=== PATIENT | male | born 1965 | race Hispanic/Latino ===

== ENCOUNTER 2017-02-04 06:31 | Emergency (ER) | payer BC ==
[2017-02-04 06:46] VITALS: BMI 35.4
[2017-02-04 06:49] VITALS: TEMP 98.2
--- NOTE | 2017-02-04 07:43 | ED PDOC ---
Arrival/HPI <KarlamayraKeegan - Last Filed: 02/04/17 08:09> <Lala Sotelo - Last Filed: 02/04/17 12:40> - General Chief Complaint: Weakness/Neurological Deficit Time Seen by Provider: 02/04/17 07:09 - History of Present Illness Narrative History of Present Illness (Text): 02/04/17 07:33 51 y/o M w/ PMHx of HTN presents to the ED w/ dizziness and chest pressure. Pt states he woke up at 4am as per usually. Pt went to get his mail and coffee when he became lightheaded, dizzy, and unsteady. Pt admits to some chest discomfort and diaphoresis during this episode. symptoms resolved w/in a few minutes, but reoccurred. Pt denies changes in vision, DUBON, palpitations, F/C, N/V , numbness or weakness. Pt expressed concer w/ wound on R medial thigh. Pt states he scraped his leg w/ an anvil on Monday (01/31/17). His jeans did not rip but he did have some superficial scrapes. Pt takes coumadin for previous TIA /stoke. Pt admits to significant swelling and bruising of R medial thigh which has improved. Pt denies any decreased ROM or numbness/tingling. (Lala Sotelo) Past Medical History - Provider Review Nursing Documentation Reviewed: Yes - Infectious Disease Hx of Infectious Diseases: None - Tetanus Immunization Tetanus Immunization: Unknown - Cardiac Hx Hypertension: Yes - Pulmonary Hx Respiratory Tract Infection: Yes - Neurological Hx Neurological Disorder: No - HEENT Hx HEENT Disorder: Yes (detatched retina) - Renal Hx Renal Disorder: No - Endocrine/Metabolic Hx Endocrine Disorders: No - Hematological/Oncological Hx Blood Disorders: No - Integumentary Hx Dermatological Disorder: No - Musculoskeletal/Rheumatological Hx Musculoskeletal Disorders: No Hx Falls: No - Gastrointestinal Hx Gastrointestinal Disorders: No - Genitourinary/Gynecological Hx Genitourinary Disorders: No - Psychiatric Hx Depression: Yes Hx Substance Use: No - Past Surgical History Past Surgical History: No Previous - Surgical History Hx Eye Surgery: Yes - Anesthesia Hx Anesthesia: Yes Hx Anesthesia Reactions: No Hx Malignant Hyperthermia: No - Suicidal Assessment Feels Threatened In Home Enviroment: No <Lala Sotelo - Last Filed: 02/04/17 12:40> Family/Social History - Physician Review Nursing Documentation Reviewed: Yes Family/Social History: No Known Family HX Smoking Status: Heavy Smoker > 10 Cigarettes Daily Hx Alcohol Use: Yes Frequency of alcohol use: Socially Hx Substance Use: No Hx Substance Use Treatment: No <AshleighLala - Last Filed: 02/04/17 12:40> Allergies/Home Meds <Keegan Díaz - Last Filed: 02/04/17 08:09> <Sydnee Soteloanda - Last Filed: 02/04/17 12:40> Allergies/Adverse Reactions: Allergies No Known Allergies Allergy (Verified 10/31/15 15:42) Home Medications: Home Meds Medication Instructions Recorded Confirmed Lisinopril [Lisinopril] 40 mg PO BID 10/30/15 10/31/15 amLODIPine [Norvasc] 10 mg PO DAILY 10/30/15 10/31/15 hydroCHLOROthiazide [Hydrodiuril] 25 mg PO DAILY 10/30/15 10/31/15 Review of Systems - Physician Review All systems were reviewed & negative as marked: Yes - Review of Systems Constitutional: absent: Fevers Eyes: absent: Vision Changes <Lala Sotelo - Last Filed: 02/04/17 12:40> Physical Exam Vital Signs Reviewed: Yes Temperature: Afebrile Blood Pressure: Hypertensive Pulse: Regular Respiratory Rate: Normal Appearance: Positive for: Well-Appearing, Comfortable Pain Distress: None Mental Status: Positive for: Alert and Oriented X 3 - Systems Exam Head: Present: Atraumatic, Normocephalic Extroacular Muscles: Present: EOMI Conjunctiva: Present: Normal Mouth: Present: Moist Mucous Membranes Neck: Present: Normal Range of Motion Respiratory/Chest: Present: Clear to Auscultation, Good Air Exchange. No: Respiratory Distress, Accessory Muscle Use Cardiovascular: Present: Regular Rate and Rhythm, Normal S1, S2. No: Murmurs Abdomen: Present: Tenderness, Normal Bowel Sounds. No: Distention, Peritoneal Signs Upper Extremity: Present: Normal Inspection Lower Extremity: Present: Other (ecchymosis in various stages of healing on R medial thigh. no induration, fluctuance. superficial scrapes.). No: Edema, CALF TENDERNESS, Temperature Abnormalties Neurological: Present: GCS=15, Speech Normal Skin: Present: Warm, Dry Psychiatric: Present: Alert, Oriented x 3, Normal Insight, Normal Concentration <Lala Sotelo - Last Filed: 02/04/17 12:40> Vital Signs Temp Pulse Resp BP Pulse Ox 02/04/17 11:51 65 16 173/100 H 98 02/04/17 10:29 69 16 174/94 H 97 02/04/17 08:55 68 16 165/97 H 97 02/04/17 06:48 98.2 F 71 18 188/125 H 97 Medical Decision Making <Keegan Díaz - Last Filed: 02/04/17 08:09> - Lab Interpretations I have reviewed the lab results: Yes (elevated LDH, CPK; trop WNL) - RAD Interpretation Channel Rougher: ED Physician (CXR: No active disease, Borderline cardiomegaly) - EKG Interpretation Interpreted by ED Physician: Yes (NSR, rate 71, no ST elevations) Type: 12 lead EKG <Lala Sotelo - Last Filed: 02/04/17 12:40> ED Course and Treatment: In agreement with resident note, which includes further HPI details. Patient was seen and evaluated with resident, came up with plan and treatment together. (Keegan Díaz) 02/04/17 07:46 51 y/o M w/ chest discomfort - ACS r/o - EKG, CXR - Labs - ASA - RLE CT - reassess and dispo 02/04/17 08:54 Pt BP improved w/ Nitro. Pt resting comfortably. no current complaints. Case discussed w/ Dr. Epps, covering for Dr. Alexander. Pt accepted to her service for ACS r/o. Pt agreeable to admission for observation. (Lala Sotelo) - Lab Interpretations Lab Results: 02/04/17 07:48 02/04/17 07:48 Lab Results 02/04/17 07:48: Sodium 142, Potassium 3.4 L, Chloride 104, Carbon Dioxide 28, Anion Gap 13, BUN 21, Creatinine 1.2, Est GFR ( Amer) > 60, Est GFR (Non- Af Amer) > 60, Random Glucose 106, Calcium 9.4, Magnesium 1.9, Total Bilirubin 0.9, AST 46, ALT 38, Alkaline Phosphatase 73, Lactate Dehydrogenase 727 H, Total Creatine Kinase 519 H, CK-MB (CK-2) 4.2 H, CK-MB (CK-2) % Cancelled, Troponin I < 0.01 D, Total Protein 7.6, Albumin 4.4, Globulin 3.2, Albumin/ Globulin Ratio 1.4 02/04/17 07:48: PT 10.8, INR 1.00, APTT 26.0 02/04/17 07:48: WBC 5.5, RBC 4.41, Hgb 13.8 L, Hct 39.9 L, MCV 90.5, MCH 31.3, MCHC 34.6, RDW 12.6, Plt Count 200, MPV 9.2, Gran % 70.8 H, Lymph % (Auto) 18.5 L, Routt % (Auto) 8.5 H, Eos % (Auto) 1.8, Baso % (Auto) 0.4, Gran # 3.91, Lymph # 1.0 L, Routt # 0.5, Eos # 0.1, Baso # 0.02 - RAD Interpretation Narrative RAD Interpretations (Text): 02/04/17 12:19 CT RLE: small hematoma medial thigh. R knee pedro's cyts (Lala Sotelo) Radiology Orders: 02/04/17 07:35 CHEST PORTABLE [RAD] Stat 02/04/17 07:57 EXT LOWER WITH CONTRAST RIGHT [CT] Stat - Medication Orders Current Medication Orders: Discontinued Medications Acetaminophen (Tylenol 325mg Tab) 650 mg PO STAT STA Stop: 02/04/17 08:04 Last Admin: 02/04/17 08:12 Dose: 650 mg Acetaminophen (Tylenol 325mg Tab) 650 mg PO Q6H PRN PRN Reason: Fever >100.4 F Aspirin (Aspirin) 325 mg PO STAT STA Stop: 02/04/17 07:35 Last Admin: 02/04/17 07:57 Dose: 325 mg Aspirin (Aspirin Chewable) 81 mg PO DAILY [facility] Last Admin: 02/04/17 10:13 Dose: Iohexol (Omnipaque 350 100 Ml) Confirm Administered Dose 350 mg .ROUTE .STK-MED ONE Stop: 02/04/17 09:00 Metoprolol Succinate (Toprol Xl) 25 mg PO BRK [facility] Last Admin: 02/04/17 10:32 Dose: 25 mg Nitroglycerin (Nitrostat Sl Tab) 0.4 mg SL STAT STA Stop: 02/04/17 07:49 Last Admin: 02/04/17 07:57 Dose: 0.4 mg Ondansetron HCl (Zofran Inj) 4 mg IVP Q6H PRN PRN Reason: Nausea/Vomiting Pantoprazole Sodium (Protonix Ec Tab) 40 mg PO 0630 [facility] Potassium Chloride (K-Dur 20 Meq Er Tab) 20 meq PO STAT STA Stop: 02/04/17 08:10 Last Admin: 02/04/17 08:49 Dose: 20 meq - Scribe Statement The provider has reviewed the documentation as recorded by the Scribe <Keegan Díaz - Last Filed: 02/04/17 08:09> <Lala Sotelo - Last Filed: 02/04/17 12:40> - Scribe Statement Ashley Juarez Provider Scribe Attestation: All medical record entries made by the Scribe were at my direction and personally dictated by me. I have reviewed the chart and agree that the record accurately reflects my personal performance of the history, physical exam, medical decision making, and the department course for this patient. I have also personally directed, reviewed, and agree with the discharge instructions and disposition. (Keegan Díaz) Disposition/Present on Arrival <Keegan Díaz - Last Filed: 02/04/17 08:09> - Present on Arrival Any Indicators Present on Arrival: No History of DVT/PE: No History of Uncontrolled Diabetes: No Urinary Catheter: No History of Decub. Ulcer: No History Surgical Site Infection Following: None - Disposition Have Diagnosis and Disposition been Completed?: Yes Disposition Time: 08:54 Patient Plan: Observation <Lala Sotelo - Last Filed: 02/04/17 12:40> - Disposition Diagnosis: Chest pain Disposition: AGAINST MEDICAL ADVICE Condition: STABLE Referrals: PCP,NO [Primary Care Provider] - Follow up with primary
[2017-02-04 07:49] LABS: ADD MANUAL DIFF? NO
[2017-02-04 07:52] LABS: BASO # 0.02 K/mm3 (0.0-2.0); BASO % 0.4 % (0.0-3.0); EOS # 0.1 (0.0-0.7); EOS % 1.8 % (1.5-5.0); GRAN # 3.91 (1.4-6.5); GRAN % 70.8 % (50.0-68.0); HEMATOCRIT 39.9 % (42.0-52.0); LYMPH % 18.5 % (22.0-35.0); MEAN CELL VOLUME 90.5 fL (80.0-105.0); MEAN CORPUSCULAR HEMOGLOBIN 31.3 pg (25.0-35.0); MEAN CORPUSCULAR HGB CONC 34.6 g/dl (31.0-37.0); MEAN PLATELET VOLUME 9.2 fl (7.0-11.0); MONO # 0.5 (0.1-0.6); MONO % 8.5 % (1.0-6.0); PLATELET COUNT 200 10^3/uL (120.0-450.0); RED CELL DISTRIBUTION WIDTH 12.6 % (11.5-14.5); WHITE BLOOD COUNT 5.5 10^3/ul (4.5-11.0)
[2017-02-04 08:05] LABS: ALB/GLOB RATIO 1.4 (1.1-1.8); ALKALINE PHOSPHATASE 73 U/L (38-133); ALT/SGPT 38 U/L (7-56); AST/SGOT 46 U/L (15-59); BILIRUBIN,TOTAL 0.9 mg/dL (0.2-1.3); BLOOD UREA NITROGEN 21 mg/dL (7-21); CALCIUM 9.4 mg/dL (8.4-10.5); CARBON DIOXIDE 28 mmol/L (21-33); CHLORIDE 104 mmol/L (98-107); GFR AFRICAN-AMERICAN > 60; GLUCOSE,RANDOM 106 mg/dL (70-110); MAGNESIUM 1.9 mg/dL (1.7-2.2); POTASSIUM 3.4 mmol/L (3.6-5.0); SODIUM 142 mmol/L (132-148); TOTAL PROTEIN 7.6 g/dL (5.8-8.3)
[2017-02-04] MEDS ORDERED: Potassium Chloride 20 mEq ER Tab PO STA (08:09)
[2017-02-04 08:19] LABS: TROPONIN I < 0.01 ng/mL
[2017-02-04 08:57] VITALS: RESP 16
[2017-02-04] MEDS ORDERED: Iohexol 350 MG/100 ML VIAL ONE (08:59)
--- NOTE | 2017-02-04 09:23 | RAD ---
HISTORY: chest pressure COMPARISON: Chest x-ray performed 10/30/15 TECHNIQUE: Chest, one view. FINDINGS: Examination limited by habitus. LUNGS: No focal consolidation. Please note that chest x-ray has limited sensitivity for the detection of pulmonary masses. PLEURA: No significant pleural effusion identified. No definite pneumothorax . CARDIOVASCULAR: Heart size appears top normal. Ectatic aorta. OSSEOUS STRUCTURES: Degenerative changes. Acromioclavicular arthropathy. VISUALIZED UPPER ABDOMEN: Mild elevation of the right hemidiaphragm. OTHER FINDINGS: None. IMPRESSION: No focal consolidation, significant pleural effusion, or definite pneumothorax identified.
[2017-02-04] MEDS ORDERED: Metoprolol Succinate 25 mg XL Tab PO SCH (09:30)
[2017-02-04 11:52] VITALS: BP 173/100; PULSE 65; O2SAT 98
--- NOTE | 2017-02-04 12:03 | CP.PCM.PN ---
Subjective - Date & Time of Evaluation Date of Evaluation: 02/04/17 Time of Evaluation: 11:58 - Subjective Subjective: pt was admitted for cp and rt thigh hematoma on cumadine. wants to sign AMA. pt states he has to take care of his mother at home. Objective - Vital Signs/Intake and Output Vital Signs (last 24 hours): Temp Pulse Resp BP Pulse Ox 98.2 F 65 16 173/100 H 98 02/04/17 06:48 02/04/17 11:51 02/04/17 11:51 02/04/17 11:51 02/04/17 11:51 - Medications Medications: Current Medications Acetaminophen (Tylenol 325mg Tab) 650 mg PO Q6H PRN PRN Reason: Fever >100.4 F Aspirin (Aspirin Chewable) 81 mg PO DAILY [facility] Last Admin: 02/04/17 10:13 Dose: Not Given Metoprolol Succinate (Toprol Xl) 25 mg PO BRK [facility] Last Admin: 02/04/17 10:32 Dose: 25 mg Ondansetron HCl (Zofran Inj) 4 mg IVP Q6H PRN PRN Reason: Nausea/Vomiting Pantoprazole Sodium (Protonix Ec Tab) 40 mg PO 0630 [facility] - Labs Labs: PT 10.8 Seconds (9.9-11.8) 02/04/17 07:48 INR 1.00 (0.93-1.08) 02/04/17 07:48 APTT 26.0 Seconds (23.7-30.8) 02/04/17 07:48 - Constitutional Appears: No Acute Distress - Head Exam Head Exam: NORMOCEPHALIC - Eye Exam Eye Exam: Normal appearance Pupil Exam: PERRL - ENT Exam ENT Exam: Mucous Membranes Moist - Neck Exam Neck Exam: Full ROM - Respiratory Exam Respiratory Exam: Clear to Ausculation Bilateral, NORMAL BREATHING PATTERN - Cardiovascular Exam Cardiovascular Exam: RRR, +S1, +S2 - Rectal Exam Rectal Exam: Deferred - Extremities Exam Extremities Exam: Full ROM - Neurological Exam Neurological Exam: Alert, Awake, CN II-XII Intact, Oriented x3 - Psychiatric Exam Psychiatric exam: Normal Affect - Skin Skin Exam: Dry Additional comments: pt has hematoma on rt thigh. Assessment and Plan - Assessment and Plan (Free Text) Assessment: AMA. CP . RT THIGH HEMATOMA ON CUMADINE PT PTT NL . Plan: RISK OF RECURRENT BLEEDING AND CP EXPLAINDto pt. pmd dr rain informed.
--- NOTE | 2017-02-04 12:22 | CT ---
Indication: Hematoma Right lower extremity CT with contrast Technique: Axial CT images of the right femur without IV contrast. Sagittal coronal reformatted images were generated and reviewed. This CT exam was performed using 1 or more of the following dose reduction techniques: Automated exposure control, adjustment of the MAA and/or kV according to patient size, and/or use of iterative reconstruction technique Contrast: 100 mL Omnipaque 350 administered IV. Comparison: None available Findings: No acute fracture. No dislocation. Mild degenerative changes involving the right hip and knee with joint space narrowing and osteophyte formation. Mild soft tissue swelling. Small collection is identified within the medial soft tissues of the distal thigh measuring approximately 61 HU and approximately 6.1 cm (cc) by 3.2 cm (transverse dimension) by 3.5 cm (AP dimension), possibly hematoma. 8.6 cm (cc dimension) by 3.9 cm (transverse dimension) by 3.3 cm (AP dimension fluid collection in the popliteal fossa compatible with Cervantes's cyst. Limited visualization of the intrapelvic contents demonstrates scattered diverticulosis without CT evidence of acute diverticulitis. Prostate calcifications. Contrast within the urinary bladder. Partially imaged small bilateral hydroceles. Impression: No acute fracture or dislocation. Small collection is identified within the medial soft tissues of the distal thigh measuring approximately 61 HU and approximately 6.1 cm x 3.2 cm x 3.5 cm, possibly hematoma. Large fluid collection in the popliteal fossa compatible with Cervantes's cyst. Additional incidental findings as above. Preliminary impression was provided by virtual radiologic. Findings discussed with Lala Sotelo at 1218pm on 02/04/17.
--- NOTE | 2017-02-04 15:44 | CARD ---
APPROVED REPORT EKG Measurement Heart [id number] [id number] <Conclusion> Normal sinus rhythm Normal ECG
[2017-02-04 19:06] LABS: CHOLESTEROL 231 mg/dL (130-200)
[2017-02-04 19:19] LABS: TROPONIN I < 0.01 ng/mL
[2017-02-05] MEDS ORDERED: Pantoprazole 40 mg EC Tab PO SCH (06:30)
== END 2017-02-04 12:03 | disposition left against medical advice (07) ==
LOC: ED 06:31 → UNDOADMOB 08:57 → ERH 08:57 → ED 12:03
DX: R07.9 Chest pain, unspecified (principal); I10 Essential (primary) hypertension; F17.210 Nicotine dependence, cigarettes, uncomplicated
CPT/HCPCS: 71010; 73701; 80053; 80061; 82550; 82553; 83615; 83735; 84484; 85025; 85610; 85730; 93005; 99285; Q9967

== ENCOUNTER 2017-02-04 17:41 | Observation (INO) | payer BC ==
--- NOTE | 2017-02-04 17:48 | ED PDOC ---
Arrival/HPI - General Time Seen by Provider: 02/04/17 17:44 - History of Present Illness Narrative History of Present Illness (Text): 02/04/17 17:45 Patient came back to the ER after signing out AMA, stating that his chest pain came back. Time/Duration: Prior to Arrival Symptom Onset: Gradual Symptom Course: Unchanged Quality: Unable to Describe Past Medical History - Provider Review Nursing Documentation Reviewed: Yes - Infectious Disease Hx of Infectious Diseases: None - Tetanus Immunization Tetanus Immunization: Unknown - Cardiac Hx Hypertension: Yes - Pulmonary Hx Respiratory Tract Infection: Yes - Neurological Hx Neurological Disorder: No - HEENT Hx HEENT Disorder: Yes (detatched retina) - Renal Hx Renal Disorder: No - Endocrine/Metabolic Hx Endocrine Disorders: No - Hematological/Oncological Hx Blood Disorders: No - Integumentary Hx Dermatological Disorder: No - Musculoskeletal/Rheumatological Hx Musculoskeletal Disorders: No Hx Falls: No - Gastrointestinal Hx Gastrointestinal Disorders: No - Genitourinary/Gynecological Hx Genitourinary Disorders: No - Psychiatric Hx Depression: Yes Hx Substance Use: No - Past Surgical History Past Surgical History: No Previous - Surgical History Hx Eye Surgery: Yes - Anesthesia Hx Anesthesia: Yes Hx Anesthesia Reactions: No Hx Malignant Hyperthermia: No - Suicidal Assessment Feels Threatened In Home Enviroment: No Family/Social History Family/Social History: Unknown Family HX Smoking Status: Heavy Smoker > 10 Cigarettes Daily Hx Alcohol Use: Yes Hx Substance Use: No Hx Substance Use Treatment: No Allergies/Home Meds Allergies/Adverse Reactions: Allergies No Known Allergies Allergy (Verified 02/04/17 17:56) Home Medications: Home Meds Medication Instructions Recorded Confirmed Lisinopril [Lisinopril] 40 mg PO BID 10/30/15 10/31/15 amLODIPine [Norvasc] 10 mg PO DAILY 10/30/15 10/31/15 hydroCHLOROthiazide [Hydrodiuril] 25 mg PO DAILY 10/30/15 10/31/15 Physical Exam - Physical Exam Narrative Physical Exam (Text): 02/04/17 17:46 - Review of Systems Constitutional: Normal. absent: Fatigue, Weight Change, Fevers Eyes: Normal ENT: denies sore throat, denies tristhmus Respiratory: Normal. absent: SOB, Cough, Sputum Cardiovascular: Chest Pain absent: Palpitations, Syncope Gastrointestinal: Normal. absent: Abdominal Pain, Diarrhea, Nausea, Vomiting Genitourinary: Normal. absent: Dysuria, Frequency, Hematuria Musculoskeletal: Normal. absent: Arthralgias, Back Pain, Neck Pain Skin: no rashes, no erythema Neurological: absent: Focal Weakness Endocrine: Normal Hemo/Lymphatic: Normal Psychiatric: No suicidal or homicidal ideations Physical exam Patient appears age appropriate in no distress, speaking full sentences without difficulty - Systems Exam Head: Present: Atraumatic, Normocephalic Pupils: Present: PERRL Extroacular Muscles: Present: EOMI Conjunctiva: Present: Normal Mouth: Present: Moist Mucous Membranes Neck: Present: Normal Range of Motion. No: MIDLINE TENDERNESS, Paraspinal Tenderness Respiratory/Chest: Present: Clear to Auscultation, Good Air Exchange. No: Respiratory Distress, Accessory Muscle Use, Tachypneic Cardiovascular: Present: Regular Rate and Rhythm, Normal S1, S2, Peripheal Pulses Present. No: Murmurs Abdomen: Present: Normal Bowel Sounds. No: Tenderness, Distention, Peritoneal Signs, Rebound, Guarding Back: Present: Normal Inspection. No: Midline Tenderness, Paraspinal Tenderness Upper Extremity: Present: Normal Inspection. No: Cyanosis, Edema Lower Extremity: Present: Normal Inspection. No: Edema Neurological: Present: GCS=15, Speech Normal, cranial nerves II through XII fully intact with no cerebellar abnormality, neurosensory fully intact. No focal neurological deficits. Skin: Present: Warm, Dry, Normal Color. No: Rashes Lymphatic: Present: OX3, NI, NC Psychiatric: Present: Alert, Oriented x 3, Normal Insight, Normal Concentration Vital Signs Reviewed: Yes Vital Signs Temp Pulse Resp BP Pulse Ox 02/04/17 17:44 97.5 F L 81 18 196/114 H 99 Temperature: Afebrile Blood Pressure: Hypertensive Pulse: Regular Respiratory Rate: Normal Appearance: Positive for: Well-Appearing Pain Distress: None Mental Status: Positive for: Alert and Oriented X 3 Medical Decision Making ED Course and Treatment: 02/04/17 17:47 Dr. Mich shelley, awaiting callback 02/04/17 17:[address] Epps, accepted pt back to her service EKG shows NSR at 78 BPM, no ST segment elevations, normal intervals. Interpreted by me. - EKG Interpretation Interpreted by ED Physician: Yes Type: 12 lead EKG - Medication Orders Current Medication Orders: Discontinued Medications Nitroglycerin (Nitrostat Sl Tab) 0.3 mg SL STAT STA Stop: 02/04/17 17:46 Last Admin: 02/04/17 17:49 Dose: 0.3 mg Disposition/Present on Arrival - Present on Arrival Any Indicators Present on Arrival: No History of DVT/PE: No History of Uncontrolled Diabetes: No Urinary Catheter: No History Surgical Site Infection Following: None - Disposition Have Diagnosis and Disposition been Completed?: Yes Diagnosis: Chest pain Disposition: HOSPITALIZED Disposition Time: 17:54 Patient Plan: Observation Discharge Instructions (ExitCare): Chest Pain (ED)
[2017-02-04 17:54] VITALS: BMI 34.3
[2017-02-04] MEDS: Metoprolol Succinate 25 mg XL Tab PO SCH (20:36)
[2017-02-04 21:05] LABS: CHOLESTEROL 214 mg/dL (130-200)
[2017-02-04 21:23] LABS: TROPONIN I < 0.01 ng/mL
[2017-02-04] MEDS ORDERED: Pneumococcal 23-Valent Vaccine IM ONE (21:49)
--- NOTE | 2017-02-05 01:15 | HP ---
HISTORY OF PRESENT ILLNESS: The patient was seen in the Emergency Room earlier with chest pain and diaphoresis. It was planned to place him in observation by . When he learned that he neede d to stay in hospital, he stated he had to take care of mother who has Alzheimer's. He had to make s ome arrangements so he signed against medical advice, but ended up coming back again. The patient de nies any fever or chills. No history of cough or congestion. He did have some dizziness and chest p ressure. The patient stated he woke up around this morning as usual. When he went to get his mail and coffee, he became very lightheaded and dizzy and felt as if he was drunk and was going to fa ll. At that point, he has some chest discomfort. He started to sweat. It lasted for a few minutes and by the time he came to the Emergency Room, he felt better. No history of nausea and vomiting. N o fevers, no chills, no cough, no congestion, no hemoptysis and no hematemesis; however, he did susta in a scrap wound on the medial aspect of his right thigh and noticed some discomfort to that area. PAST MEDICAL HISTORY: Significant for hypertension. He had a TIA in the past and at that point, he was started on Coumadin. ALLERGIES: Not allergic to any medications. MEDICATIONS AT HOME: He is on hydrochlorothiazide 25 daily, amlodipine 10 mg daily and lisinopril 40 mg twice a day. SOCIAL HISTORY: Socially drinks, heavy smoker of more than almost a pack a day. REVIEW OF SYSTEMS: Significant for chest pressure, being deaf . PHYSICAL EXAMINATION: GENERAL: He is awake, alert and communicative. VITAL SIGNS: He is afebrile, pulse 71, respirations 18 and blood pressure is 173/ . LUNGS: Bilateral fair airflow, no rhonchi or crackle. HEART: S1, S2 audible. ABDOMEN: Soft, nontender, no rebound and no guarding. NEUROLOGIC: The patient is awake, alert and communicative. LABORATORY DATA: WBC 5.5, hemoglobin 13.8, hematocrit 39 and platelets 200. His PT is 10.8, INR 1.0 0 and PTT 26.0. Chemistry: Sodium 142, potassium 3.4, chloride 104, CO2 of 28, BUN 21, creatinine 1 .2 and blood sugar of 106. LFTs are within normal limits. LDH is 707, CPK of 519, MB 4.2, troponin 0.01, albumin 4.4, globulin 3.2, lipase is 51 and amylase . Urinalysis shows positive protein. ASSESSMENT AND PLAN: 1. Chest pain, rule out underlying coronary artery disease. 2. Hypertension. 3. Hyperlipidemia. PLAN: The patient will be placed in observation. Will follow up cardiac enzymes and follow up thyro id and lipid profile. Start him on beta blockers. Resume his usual medications. Will consult cardi ologist. ____ reevaluate this patient in a.m. Hoa Epps MD cc: [id number] TT: 02/04/2017 23:48:30 sn
[2017-02-05] MEDS: Pantoprazole 40 mg EC Tab PO SCH (07:15)
[2017-02-05 07:49] LABS: ADD MANUAL DIFF? NO
[2017-02-05 08:13] LABS: ALB/GLOB RATIO 1.3 (1.1-1.8); ALKALINE PHOSPHATASE 66 U/L (38-133); ALT/SGPT 40 U/L (7-56); AST/SGOT 31 U/L (15-59); BILIRUBIN,TOTAL 0.8 mg/dL (0.2-1.3); BLOOD UREA NITROGEN 19 mg/dL (7-21); CALCIUM 8.7 mg/dL (8.4-10.5); CARBON DIOXIDE 27 mmol/L (21-33); CHLORIDE 104 mmol/L (95-110); GFR AFRICAN-AMERICAN > 60; GLUCOSE,RANDOM 97 mg/dL (70-110); PHOSPHOROUS 2.9 mg/dL (2.5-4.5); POTASSIUM 3.1 mmol/L (3.6-5.0); SODIUM 140 mmol/L (132-148); TOTAL PROTEIN 7.2 g/dL (5.8-8.3)
[2017-02-05 08:24] LABS: BASO # 0.01 K/mm3 (0.0-2.0); BASO % 0.2 % (0.0-3.0); EOS # 0.1 (0.0-0.7); GRAN # 4.19 (1.4-6.5); GRAN % 69.1 % (50.0-68.0); HEMATOCRIT 38.7 % (42.0-52.0); LYMPH # 1.3 (1.2-3.4); LYMPH % 21.9 % (22.0-35.0); MEAN CELL VOLUME 90.4 fL (80.0-105.0); MEAN CORPUSCULAR HEMOGLOBIN 30.6 pg (25.0-35.0); MEAN CORPUSCULAR HGB CONC 33.9 g/dl (31.0-37.0); MEAN PLATELET VOLUME 9.1 fl (7.0-11.0); MONO # 0.4 (0.1-0.6); MONO % 6.8 % (1.0-6.0); PLATELET COUNT 203 10^3/uL (120.0-450.0); RED CELL DISTRIBUTION WIDTH 12.7 % (11.5-14.5); WHITE BLOOD COUNT 6.1 10^3/ul (4.5-11.0)
[2017-02-05] MEDS ORDERED: Potassium Chloride 20 mEq ER Tab PO ONE (08:45)
[2017-02-05] MEDS: Metoprolol Succinate 25 mg XL Tab PO SCH (08:57)
[2017-02-05 09:14] LABS: FREE T4 0.7 ng/dL (0.78-2.19)
[2017-02-05 09:29] LABS: THYROID STIMULATING HORMONE 1.8 mIU/mL (0.46-4.68)
--- NOTE | 2017-02-05 12:10 | PN ---
DATE: 02/05/2017 SUBJECTIVE: The patient is 51-year-old, seen and examined, came in yesterday morning with chest disc omfort radiating towards the left arm. He was diaphoretic. He states he feels fine now. PHYSICAL EXAMINATION: GENERAL: He is awake and alert, communicative. VITAL SIGNS: He is afebrile, pulse 56, respirations 20, blood pressure 174/114. LUNGS: Bilateral fair airflow, no rhonchi or crackle. HEART: S1, S2 audible. ABDOMEN: Soft, nontender, no rebound, no guarding. NEUROLOGIC: The patient is awake and alert, able to communicate, moves all extremities. LABORATORY: Sodium 140, potassium 3.1, chloride 104, CO2 27, BUN 19, creatinine 1.1, blood sugar 97. Triglycerides 273, cholesterol 214, LDL is 161. ASSESSMENT: 1. Chest pain seems to be noncardiac. 2. Uncontrolled hypertension. 3. History of transient ischemic attack in the past. 4. Peptic ulcer disease. 5. Hypokalemia. PLAN: We will supplement his potassium. Follow up cardiac enzymes. Awaiting cardiology evaluation. We will restart him on his usual dose of Coumadin, although he does not know the dose. If he is neena ared by cardiology point of view, he can have an endoscopy done as outpatient for his GERD symptoms. Hoa Epps MD cc: [phone] TT: 02/05/2017 12:09:42 Confirmation # [id number] Dictation # [id number]
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
--- NOTE | 2017-02-05 22:10 | CARD ---
APPROVED REPORT EKG Measurement Heart [id number] <Conclusion> Normal sinus rhythm Normal ECG
[2017-02-06 00:47] VITALS: RESP 19
--- NOTE | 2017-02-06 03:32 | CP.PCM.PN ---
Subjective - Date & Time of Evaluation Date of Evaluation: 02/06/17 Time of Evaluation: 03:32 - Subjective Subjective: Draft. 163/110 Headache. Hydralazine 10 mg IV and motrin 600 mg PO were ordered. 04:40 Nurse Cathy called. Pulse ox 98% on 3L/Min. Systolic BP down to 98 . Rx,EKG Troponin. seen at bedside. smoker for 37 years 1 PPD. wheezing + right distal thigh echyymosis present. states that sob started imediately after having hydralazine IV . Rx, Benadryl 25 mg IV Duoneb neb treatment stat. EKG-sinus bradycardia. Objective - Vital Signs/Intake and Output Vital Signs (last 24 hours): Temp Pulse Resp BP Pulse Ox 98.3 F 68 19 163/110 H 96 02/06/17 00:01 02/06/17 02:00 02/06/17 00:01 02/06/17 00:01 02/05/17 06:00 Intake and Output: 02/05/17 02/06/17 18:59 06:59 Intake Total 318 Balance 318 - Medications Medications: Current Medications Acetaminophen (Tylenol 325mg Tab) 650 mg PO Q6H PRN PRN Reason: Fever >100.4 F Last Admin: 02/05/17 07:15 Dose: 650 mg Amlodipine Besylate (Norvasc) 10 mg PO DAILY [facility] Last Admin: 02/05/17 09:08 Dose: 10 mg Aspirin (Aspirin Chewable) 81 mg PO DAILY [facility] Last Admin: 02/05/17 09:08 Dose: 81 mg Atorvastatin Calcium (Lipitor) 20 mg PO DIN [facility] Last Admin: 02/05/17 18:16 Dose: 20 mg Hydralazine HCl (Apresoline) 50 mg PO BID [facility] Last Admin: 02/05/17 18:16 Dose: 50 mg Hydrochlorothiazide (Hydrodiuril) 25 mg PO DAILY [facility] Last Admin: 02/05/17 09:08 Dose: 25 mg Lisinopril (Zestril) 40 mg PO BID [facility] Last Admin: 02/05/17 18:16 Dose: 40 mg Metoprolol Succinate (Toprol Xl) 25 mg PO BRK [facility] Last Admin: 02/05/17 08:57 Dose: Not Given Ondansetron HCl (Zofran Inj) 4 mg IVP Q6H PRN PRN Reason: Nausea/Vomiting Pantoprazole Sodium (Protonix Ec Tab) 40 mg PO 0630 [facility] Last Admin: 02/05/17 07:15 Dose: 40 mg Warfarin Sodium (Coumadin) 2 mg PO 1800 [facility] PRN Reason: Protocol Last Admin: 02/05/17 18:16 Dose: 2 mg - Labs Labs: 02/05/17 07:47 02/05/17 07:45
[2017-02-06 05:03] VITALS: BP 160/98; O2SAT 98
[2017-02-06] MEDS ORDERED: DiphenhydrAMINE 50 mg/ml Inj IVP STA (05:09)
[2017-02-06] MEDS ORDERED: Albuterol-Ipratrop 3 mg / 0.5 (3 ml) UD IH STA (05:09)
[2017-02-06] MEDS ORDERED: DiphenhydrAMINE 50 mg/ml Inj ONE (05:16)
[2017-02-06] MEDS: Pantoprazole 40 mg EC Tab PO SCH (05:39)
[2017-02-06 06:05] LABS: D DIMER 0.46 mg/L FEU (0-0.50)
[2017-02-06 06:17] LABS: ALB/GLOB RATIO 1.3 (1.1-1.8); ALKALINE PHOSPHATASE 73 U/L (38-133); ALT/SGPT 35 U/L (7-56); AST/SGOT 32 U/L (15-59); BILIRUBIN,TOTAL 1.1 mg/dL (0.2-1.3); BLOOD UREA NITROGEN 18 mg/dL (7-21); CALCIUM 9.3 mg/dL (8.4-10.5); CARBON DIOXIDE 27 mmol/L (21-33); CHLORIDE 106 mmol/L (98-107); GFR AFRICAN-AMERICAN > 60; GLUCOSE,RANDOM 106 mg/dL (70-110); MAGNESIUM 2.1 mg/dL (1.7-2.2); POTASSIUM 3.4 mmol/L (3.6-5.0); SODIUM 141 mmol/L (132-148); TOTAL PROTEIN 7.8 g/dL (5.8-8.3)
[2017-02-06 06:24] VITALS: PULSE 60; TEMP 97.7
[2017-02-06] MEDS ORDERED: Potassium Chloride 20 mEq ER Tab PO STA (06:28)
[2017-02-06 06:43] LABS: TROPONIN I < 0.01 ng/mL
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
[2017-02-06] MEDS: Metoprolol Succinate 25 mg XL Tab PO SCH (09:49)
--- NOTE | 2017-02-07 18:03 | CARD ---
APPROVED REPORT EKG Measurement Heart [id number] 156P3 [id number] <Conclusion> Sinus bradycardia Left axis deviation Abnormal ECG
--- NOTE | 2017-02-07 18:03 | CARD ---
APPROVED REPORT EKG Measurement Heart [id number] [id number] <Conclusion> Sinus bradycardia Otherwise normal ECG
== END 2017-02-06 12:09 | disposition home or self-care (01) ==
LOC: ED 17:41 → ERH 17:55 → 2RNO 20:28
PROVIDERS: ADMIT Internal Medicine; ATTEND Internal Medicine Nephrology
DX: R07.89 Other chest pain (principal); I10 Essential (primary) hypertension; E87.6 Hypokalemia; K27.9 Peptic ulcer, site unspecified, unspecified as acute or chronic, without hemorrhage or perforation; F17.200 Nicotine dependence, unspecified, uncomplicated; E78.5 Hyperlipidemia, unspecified; Z79.01 Long term (current) use of anticoagulants; Z86.73 Personal history of transient ischemic attack (TIA), and cerebral infarction without residual deficits
CPT/HCPCS: 36415; 80053; 80061; 83036; 83735; 84100; 84439; 84443; 84484; 85025; 85378; 85610; 93005; 94640; 99285; G0378; J0360; J1200; J3480

== ENCOUNTER 2018-09-19 10:38 | Outpatient (CLI) | payer BC | END 2018-09-19 10:39 | disposition home or self-care (01) | LOC: RAD 10:38 | DX: R22.41 Localized swelling, mass and lump, right lower limb (principal) ==